=== PATIENT | male | born 1935 | race Caucasian/White ===

== ENCOUNTER 2017-12-18 06:21 | Day surgery (SDC) | payer MEDICARE, OTHER ==
[~2017-12-18] VITALS: Ht 182.9 cm; Wt 73.2 kg
[~2017-12-18 06:21] MED LIST: ALPRAZOLAM0.25 MG PO; ASPIR-LOW81 MG PO; ASPIRIN E.C. 8181 MG PO; ATENOLOL25 MG PO; PREVACID 30MG30 M1 PO; PREVACID 30MG30 MG PO; PRILOSEC 20MG20 MG PO; TENORMIN 2525 MG/TAB; ZESTRIL 20MG TA20 MG PO
[2017-12-18 06:49] VITALS: BP 148/83; PULSE 60; TEMP 97.2
[2017-12-18 08:00] VITALS: BP 148/83; PULSE 48; TEMP 97.1
[2017-12-18 08:15] VITALS: BP 117/65; PULSE 53
[2017-12-18 08:30] VITALS: BP 117/61; PULSE 49
[2017-12-18 08:45] VITALS: BP 125/70; PULSE 53
== END 2017-12-18 09:09 | disposition home or self-care (01) ==
LOC: SDCO 06:21
DX: Z12.11 Encounter for screening for malignant neoplasm of colon (principal); Z85.038 Personal history of other malignant neoplasm of large intestine; K57.30 Diverticulosis of large intestine without perforation or abscess without bleeding
CPT/HCPCS: OP; J2250; J3010; J7030